=== PATIENT | male | born 1950 | race Caucasian/White ===

== ENCOUNTER 2016-05-04 17:52 | Emergency (ER) | payer OTHER ==
[2016-05-04] MEDS ORDERED: 0.9 % SODIUM CHLORIDE 1,000 ML BAG IV ONE (18:54)
[2016-05-04] MEDS ORDERED: ONDANSETRON HCL IV 4 MG/2 ML VIAL IV ONE (18:54)
--- NOTE | 2016-05-04 18:59 | Emergency Department Record ---
History of Present Illness - General Chief Complaint: Abdominal Pain Stated Complaint: LOWER ABD PAIN Time Seen by Provider: 05/04/16 18:54 Source: Patient Mode of Arrival: Ambulatory Limitations: No limitations - History of Present Illness Initial Comments: The patient is here due to a 3 day hx of LLQ AP. The pain is an aching, crampy pain. The patient felt like he may have been constipated so he did take a laxative and then had a bloody BM yesterday. He denies any fever, chills, nausea , vomiting, or diarrhea. He has no hx of Diverticulitis but only has one kidney on the L. MD Complaint: Abdominal pain Onset/Timin -: Days(s) Location: LLQ Radiation: None Severity: Moderate Quality: Aching, Burning - Related Data Previous Rx's Medication Instructions Recorded Ciprofloxacin HCl [Cipro] 500 mg PO Q12HR #20 tablet 05/04/16 Metronidazole [Flagyl] 500 mg PO TID #30 tablet 05/04/16 Allergies Allergy/AdvReac Type Severity Reaction Status Date / Time No Known Drug Allergies Allergy Verified 05/04/16 18:52 Review of Systems Constitutional: Denies: Chills, Fever Eyes: Denies: Eye discharge ENT: Denies: Congestion Respiratory: Denies: Cough, Dyspnea Past Medical History - SOCIAL HISTORY Alcohol Use: None Drug Use: None - RESPIRATORY Hx Respiratory Disorders: No - CARDIOVASCULAR Hx Cardio Disorders: No Physical Exam - General General Appearance: Alert, Oriented x3, Cooperative, No acute distress - Head Head exam: Atraumatic, Normocephalic, Normal inspection - Eye Eye exam: Normal appearance, PERRL - ENT Throat exam: Normal inspection. negative: Tonsillar erythema, Tonsillar exudate - Neck Neck exam: Normal inspection, Full ROM. negative: Tenderness - Respiratory Respiratory exam: Normal lung sounds bilaterally - Cardiovascular Cardiovascular Exam: Regular rate, Normal rhythm, Normal heart sounds - GI/Abdominal GI/Abdominal exam: Soft, Tenderness (There is mild to moderate tenderness in the LLQ.). negative: Guarding, Rigid - Extremities Extremities exam: Normal inspection, Full ROM, Normal capillary refill. negative: Tenderness Course - Reevaluation(s) Reevaluation #1: The patient is doing well. He is resting comfortably and has not needed any pain medicines. I did explain the CT result that did demonstrate Diverticulitis. The patient is doing well and is comfortable enough to go home on oral Abx's with F/U next week with his PCP. 05/04/16 21:35 Medical Decision Making - Data Complexity MDM Data: Labs Ordered and/or Reviewed, X-Ray Ordered and/or Reviewed - Lab Data Result diagrams: 05/04/16 19:07 05/04/16 19:07 - Radiology Data Radiology results: Report reviewed (CT: Sigmoid Diverticulitis with no abscess or perforation.) Disposition Disposition: Discharge Clinical Impression: Diverticulitis large intestine Qualifiers: Diverticulitis bleeding: with bleeding Diverticulitis complication: without perforation or abscess Qualified Code(s): K57.33 - Diverticulitis of large intestine without perforation or abscess with bleeding Disposition: Home, Self-Care Condition: (1) Good Instructions: Diverticulitis (ED) Additional Instructions: Please drink plenty of fluids. Take the Cipro and Flagyl as directed. Please see DR. Garcia early next week for recheck. Return to the ER for any increased pain, fever, or vomiting. Prescriptions: Ciprofloxacin HCl [Cipro] 500 mg PO Q12HR #20 tablet Metronidazole [Flagyl] 500 mg PO TID #30 tablet Referrals: [facility] [Provider Group] Forms: Patient Portal Access Time of Disposition: 21:45
[2016-05-04 19:12] LABS: BASO % 0.3 % (0-6); EOS % 1.7 % (0-6); HEMATOCRIT 39.7 % (42.0-52.0); HEMOGLOBIN 13.1 gm/dl (14.0-18.0); MEAN CELL VOLUME 92.3 fl (81-97); PLATELET COUNT 267 K/uL (130-400); WHITE BLOOD COUNT W/O DIFF 11.5 K/uL (4.2-12.2)
[2016-05-04 19:15] LABS: MEAN CORPUSCULAR HEMOGLOBIN 30.4 pg (27-33)
[2016-05-04 19:26] LABS: ANION GAP 13.6 (7-16); BILIRUBIN,TOTAL 0.69 mg/dL (0.2-1.3); CARBON DIOXIDE 26.4 mmol/L (22-30); CREATININE 1.4 mg/dL (0.66-1.25); TOTAL PROTEIN 7.2 gm/dL (6.3-8.2)
[2016-05-04 20:03] LABS: URINE APPEARANCE CLEAR; URINE BILIRUBIN NEGATIVE (NEGATIVE); URINE BLOOD NEGATIVE (NEGATIVE); URINE COLOR YELLOW; URINE GLUCOSE (UA) NEGATIVE (NEGATIVE); URINE KETONE NEGATIVE (NEGATIVE); URINE LEUKOCYTE ESTERASE NEGATIVE (NEGATIVE); URINE NITRITE NEGATIVE (NEGATIVE); URINE PROTEIN NEGATIVE (NEGATIVE); URINE UROBILINOGEN 0.2 E.U./dL (0.20 - 1.00)
[2016-05-04] MEDS ORDERED: ERTAPENEM SODIUM 1 G in 0.9 % SODIUM CHLORIDE 100ML 100 ML IVPB ONE (21:31)
== END 2016-05-04 22:19 | disposition home or self-care (01) ==
LOC: ER 17:52
DX: K57.33 Diverticulitis of large intestine without perforation or abscess with bleeding (principal); R11.0 Nausea
CPT/HCPCS: 99284 ×2; 96365; 96375; 83690; 85025; 80076; 80048; 81003; 74176; J1335; J7030

== ENCOUNTER 2016-07-29 06:33 | Day surgery (SDC) | payer OTHER ==
[2016-07-29] MEDS ORDERED: 0.9 % SODIUM CHLORIDE 10 ML VIAL IVP ONE (13:48)
[2016-07-29] MEDS ORDERED: LIDOCAINE 2% MDV (20MG/ML) 20ML VIAL IV ONE (13:48)
[2016-07-29] MEDS ORDERED: PROPOFOL 10 MG/ML VIAL IV ONE (13:48)
--- NOTE | 2016-08-01 09:00 | Operative Note ---
DATE OF SURGERY: 07/29/2016 SURGEON: Anny Shepherd MD OPERATION: COLONOSCOPY. INDICATIONS: This is a 65-year-old male with history of diverticulitis who presented for colonoscopy. POSTOPERATIVE DIAGNOSES: 1. Left-sided colon diverticulosis. 2. Otherwise normal colon. ANESTHESIA: Per the department of anesthesia, the pulse oximetry was monitored throughout the duration of the procedure to maintain O2 saturation of 90% or greater. Supplemental oxygen was administered via nasal cannula. Cardiac and vital signs were monitored throughout the duration of the procedure, and they were stable. Description of the procedure of colonoscopy and risks and benefits of the procedure including the risk of bleeding and perforation, among others, were explained to the patient who voiced understanding and consented to have the procedure done. Physical exam was performed, and the patient was found stable for sedation. PROCEDURE: The patient was then placed in the left lateral position, and sedation was initiated. Digital rectal exam was performed and showed some mild external hemorrhoids with no palpable rectal masses. The Olympus PCF-180AL colonoscope was then inserted into the rectum under direct visualization and advanced to the cecum without difficulty. The ileocecal valve and appendiceal orifice were identified and photographed. The colonic mucosa was carefully examined upon introduction of the colonoscope. There were scattered diverticula in the sigmoid and descending colon. There were no other lesions noted. The colonoscope was then withdrawn while carefully examining the colonic mucosal surfaces. No other lesions were noted. The bowel preparation was good. In the rectum, retroflexion was performed and grade 1 internal hemorrhoids were noted. The colonoscope was then withdrawn, and the procedures were terminated. The patient tolerated the procedure well without any immediate complications. He remained with stable vital signs and was transferred to the recovery room. RECOMMENDATIONS: 1. The patient should be on a high-fiber diet. 2. He should have repeat colonoscopy for screening in 10 years. Thank you for allowing me to participate in the care of your patient. Anny Shepherd MD CC: Dr. Robert PACK
== END 2016-07-29 08:28 | disposition home or self-care (01) ==
LOC: HOP 06:33
PROVIDERS: ATTEND Internal Medicine Gastroenterology
DX: K57.30 Diverticulosis of large intestine without perforation or abscess without bleeding (principal); K92.1 Melena